=== PATIENT | female | born 1995 | race Caucasian/White ===

== ENCOUNTER 2018-11-26 09:58 | Emergency (ER) | payer BC ==
[2018-11-26] MEDS ORDERED: 0.9 % SODIUM CHLORIDE 1,000 ML BAG IV ONE (10:32)
[2018-11-26 10:47] LABS: URINE APPEARANCE CLEAR; URINE BILIRUBIN NEGATIVE (NEGATIVE); URINE BLOOD TRACE-I (NEGATIVE); URINE COLOR YELLOW; URINE GLUCOSE (UA) NEGATIVE (NEGATIVE); URINE KETONE NEGATIVE (NEGATIVE); URINE LEUKOCYTE ESTERASE NEGATIVE (NEGATIVE); URINE NITRITE NEGATIVE (NEGATIVE); URINE PROTEIN TRACE (NEGATIVE)
[2018-11-26 10:48] LABS: BASO % 0.4 % (0-6); EOS % 0.8 % (0-6); GRAN % 72.1 % (47-80); HEMATOCRIT 40.6 % (35.0-47.0); HEMOGLOBIN 13.7 gm/dl (11.6-16.0); MEAN CELL VOLUME 93.1 fl (81-97); MEAN CORPUSCULAR HEMOGLOBIN 31.4 pg (27-33); MEAN CORPUSCULAR HGB CONC 33.7 g/dl (32-36); MEAN PLATELET VOLUME 11.3 fl (7.4-10.4); MONO % 12.7 % (0-9); PLATELET COUNT 172 K/uL (130-400); RED BLOOD COUNT 4.36 M/uL (3.80-5.40); RED CELL DISTRIBUTION WIDTH 13.7 % (11.5-14.5); WHITE BLOOD COUNT W/O DIFF 4.7 K/uL (4.2-12.2)
[2018-11-26 10:54] LABS: URINE MUCUS MODERATE; URINE RBC 0 - 2 (NONE SEEN); URINE WBC NONE SEEN (0-2/hpf)
[2018-11-26 11:00] LABS: BLOOD UREA NITROGEN 7 mg/dL (6-20); CREATININE 0.5 mg/dL (0.5-0.9); EST GLOMERULAR FILTRATION RATE > 60 mL/min
[2018-11-26 11:03] LABS: GLUCOSE,RANDOM 104 mg/dL (74-109)
[2018-11-26 11:04] LABS: TOTAL PROTEIN 6.8 g/dL (6.6-8.7)
[2018-11-26 11:08] LABS: ALBUMIN 4.2 g/dL (4.0-5.0); ALT/SGPT 18 U/L (<33); AST/SGOT 19 U/L (10.0-35.0)
[2018-11-26 11:09] LABS: ALKALINE PHOSPHATASE 55 U/L (35-104)
[2018-11-26 11:11] LABS: BILIRUBIN,DIRECT < 0.2 mg/dL (0-0.3)
--- NOTE | 2018-11-26 11:19 | Emergency Department Record ---
History of Present Illness - General Chief complaint: Nausea, Vomiting, Diarrhea Stated complaint: VOMITING,DIARRHEA (12 WEEKS PREG) Time Seen by Provider: 11/26/18 10:37 Source: Patient Mode of Arrival: Ambulatory Limitations: No limitations - History of Present Illness Initial comments: pt started vomiting at 1am yesterday and then started having diarrhea. vomiting has stopped but diarrhea continues. pt is 12 wks preg and her ob told her to go to ed to be checked for food poisoning. she had eaten at a restaurant and had had salad w salami in it complaint: Nausea, Vomiting Onset/Timin -: Days(s) Description of Vomiting: Watery Severity: Moderate Severity scale (1-10): 1 Quality: Aching, Constant Consistency: Constant Context: Possible food poisoning Associated Symptoms: Nausea/vomiting - Related Data Home Medications Medication Instructions Recorded Confirmed Last Taken Montelukast Sodium [Singulair] 10 mg PO QHS 11/26/18 11/26/18 1 Day Ago ~11/25/18 Pnv No.95/Ferrous Fum/Folic AC 1 each PO DAILY 11/26/18 11/26/18 1 Day Ago [ Caplet] ~11/25/18 Allergies Allergy/AdvReac Type Severity Reaction Status Date / Time No Known Drug Allergies Allergy Verified 11/26/18 10:08 Travel Screening - Travel/Exposure Within Last 30 Days Have you traveled within the last 30 days?: No - Travel/Exposure Within Last Year Have you traveled outside the [place] in the last year?: No - Additonal Travel Details Have you been exposed to anyone with a communicable illness?: No - Travel Symptoms Symptom Screening: None Review of Systems Reviewed: No additional complaints except as noted below Constitutional: Reports: As per HPI. Denies: Chills, Fever, Malaise, Night sweats, Weakness, Weight change Eyes: Reports: As per HPI. Denies: Eye discharge, Eye pain, Photophobia, Vision change ENT: Reports: As per HPI. Denies: Congestion, Dental pain, Ear pain, Epistaxis , Hearing loss, Throat pain Respiratory: Reports: As per HPI. Denies: Cough, Dyspnea, Hemoptysis, Stridor, Wheezes Cardiovascular: Reports: As per HPI. Denies: Arrhythmia, Chest pain, Dyspnea on exertion, Edema, Murmurs, Orthopnea, Palpitations, Paroxysmal nocturnal dyspnea, Rheumatic Fever, Syncope Endocrine: Reports: As per HPI. Denies: Fatigue, Heat or cold intolerance, Polydipsia, Polyuria Gastrointestinal: Reports: As per HPI. Denies: Abdominal pain, Constipation, Diarrhea, Hematemesis, Hematochezia, Melena, Nausea, Vomiting Genitourinary: Reports: As per HPI. Denies: Abnormal menses, Discharge, Dyspareunia, Dysuria, Frequency, Hematuria, Incontinence, Retention, Urgency Musculoskeletal: Reports: As per HPI. Denies: Arthralgia, Back pain, Gout, Joint swelling, Myalgia, Neck pain Skin: Reports: As per HPI. Denies: Bruising, Change in color, Change in hair/ nails, Lesions, Pruritus, Rash Neurological: Reports: As per HPI. Denies: Abnormal gait, Confusion, Headache, Numbness, Paresthesias, Seizure, Tingling, Tremors, Vertigo, Weakness Psychiatric: Reports: As per HPI. Denies: Anxiety, Auditory hallucinations, Depression, Homicidal thoughts, Suicidal thoughts, Visual hallucinations Hematological/Lymphatic: Reports: As per HPI. Denies: Anemia, Blood Clots, Easy bleeding, Easy bruising, Swollen glands Past Medical History - SOCIAL HISTORY Smoking Status: Never smoker Alcohol Use: None Drug Use: None - RESPIRATORY Hx Respiratory Disorders: Yes Hx Asthma: Yes - CARDIOVASCULAR Hx Cardio Disorders: No - NEURO Hx Neuro Disorders: No - GI Hx GI Disorders: No - Hx Genitourinary Disorders: No - ENDOCRINE Hx Endocrine Disorders: No - MUSCULOSKELETAL Hx Musculoskeletal Disorders: No - PSYCH Hx Psych Problems: No - HEMATOLOGY/ONCOLOGY Hx Hematology/Oncology Disorders: No Family Medical History Any Significant Family History?: Yes Physical Exam - General General Appearance: Alert, Oriented x3, Cooperative, Mild distress - Head Head exam: Normal inspection - Eye Eye exam: Normal appearance, PERRL, EOMI Pupils: Normal accommodation - ENT ENT exam: Normal exam, Mucous membranes moist, Normal external ear exam, Normal orophraynx Ear exam: Normal external inspection. negative: External canal tenderness Nasal Exam: Normal inspection. negative: Discharge, Sinus tenderness Mouth exam: Normal external inspection, Tongue normal Teeth exam: Normal inspection. negative: Dental caries Throat exam: Normal inspection. negative: Tonsillar erythema, Tonsillar exudate - Neck Neck exam: Normal inspection, Full ROM. negative: Tenderness - Respiratory Respiratory exam: Normal lung sounds bilaterally. negative: Respiratory distress - Cardiovascular Cardiovascular Exam: Regular rate, Normal rhythm, Normal heart sounds - GI/Abdominal GI/Abdominal exam: Soft, Normal bowel sounds. negative: Tenderness - Rectal Rectal exam: Deferred - exam: Deferred - Extremities Extremities exam: Normal inspection, Full ROM, Normal capillary refill. negative: Tenderness - Back Back exam: Reports: Normal inspection, Full ROM. Denies: Muscle spasm, Rash noted, Tenderness - Neurological Neurological exam: Alert, CN II-XII intact, Normal gait, Oriented X3 - Psychiatric Psychiatric exam: Normal affect, Normal mood - Skin Skin exam: Dry, Intact, Normal color, Warm Course Vital Signs 11/26/18 10:00 Temperature 98.8 F Pulse Rate 86 Respiratory 18 Rate Blood Pressure 120/79 Pulse Ox 98 - Reevaluation(s) Reevaluation #1: 11/26/18 12:12 pt had no vomiting and diarrhea while in dept. rx for labs for stool sent with pt. Medical Decision Making - Lab Data Result diagrams: 11/26/18 10:10 11/26/18 10:10 Lab Results 11/26/18 11/26/18 11/26/18 Range/Units 10:10 10:10 10:10 WBC 4.7 (4.2-12.2) K/uL Corrected WBC RBC 4.36 (3.80-5.40) M/uL Hgb 13.7 (11.6-16.0) gm/dl Hct 40.6 (35.0-47.0) % MCV 93.1 (81-97) fl MCH 31.4 (27-33) pg MCHC 33.7 (32-36) g/dl RDW 13.7 (11.5-14.5) % Plt Count 172 (130-400) K/uL MPV 11.3 H (7.4-10.4) fl Gran % 72.1 (47-80) % Lymphocytes % 14.0 L (16-45) % Monocytes % 12.7 H (0-9) % Eosinophils % 0.8 (0-6) % Basophils % 0.4 (0-6) % Sodium 135 L (136-145) mmol/L Potassium 3.2 L (3.4-4.5) mmol/L Chloride 100 (98-107) mmol/L Carbon Dioxide 20.0 L (22-29) mmol/L Anion Gap 15.0 (7-16) BUN 7 (6-20) mg/dL Creatinine 0.5 (0.5-0.9) mg/dL Estimated GFR > 60 mL/min Random Glucose 104 (74-109) mg/dL Calcium 8.7 (8.6-10.0) mg/dL Total Bilirubin (0.2-1.0) mg/dL Direct Bilirubin (0-0.3) mg/dL AST (10.0-35.0) U/L ALT (<33) U/L Alkaline Phosphatase (35-104) U/L Total Protein (6.6-8.7) g/dL Albumin (4.0-5.0) g/dL Urine Color Yellow Urine Appearance Clear Urine pH 6.5 (5.0-8.0) Ur Specific [place] 1.025 (1.002-1.030) Urine Protein Trace H (NEGATIVE) Urine Glucose (UA) Negative (NEGATIVE) Urine Clinitest Urine Ketones Negative (NEGATIVE) Urine Blood Trace-i (NEGATIVE) Urine Nitrite Negative (NEGATIVE) Urine Bilirubin Negative (NEGATIVE) Urine Ictotest Prot Sulfosalicylic Acd Urine Urobilinogen 1.0 (0.20 - 1.00) E.U./dL Ur Leukocyte Esterase Negative (NEGATIVE) Urine RBC 0 - 2 (NONE SEEN) Urine WBC None seen (0-2/hpf) Ur Epithelial Cells 10 - 15 (FEW) Urine Mucus Moderate 11/26/18 11/26/18 11/26/18 Range/Units 10:10 10:53 10:53 WBC Cancelled (4.2-12.2) K/uL Corrected WBC Cancelled RBC Cancelled (3.80-5.40) M/uL Hgb Cancelled (11.6-16.0) gm/dl Hct Cancelled (35.0-47.0) % MCV Cancelled (81-97) fl MCH Cancelled (27-33) pg MCHC Cancelled (32-36) g/dl RDW Cancelled (11.5-14.5) % Plt Count Cancelled (130-400) K/uL MPV Cancelled (7.4-10.4) fl Gran % Cancelled (47-80) % Lymphocytes % Cancelled (16-45) % Monocytes % Cancelled (0-9) % Eosinophils % Cancelled (0-6) % Basophils % Cancelled (0-6) % Sodium (136-145) mmol/L Potassium (3.4-4.5) mmol/L Chloride (98-107) mmol/L Carbon Dioxide (22-29) mmol/L Anion Gap (7-16) BUN (6-20) mg/dL Creatinine (0.5-0.9) mg/dL Estimated GFR mL/min Random Glucose (74-109) mg/dL Calcium (8.6-10.0) mg/dL Total Bilirubin 0.30 (0.2-1.0) mg/dL Direct Bilirubin < 0.2 (0-0.3) mg/dL AST 19 (10.0-35.0) U/L ALT 18 (<33) U/L Alkaline Phosphatase 55 (35-104) U/L Total Protein 6.8 (6.6-8.7) g/dL Albumin 4.2 (4.0-5.0) g/dL Urine Color Cancelled Urine Appearance Cancelled Urine pH Cancelled (5.0-8.0) Ur Specific [place] Cancelled (1.002-1.030) Urine Protein Cancelled (NEGATIVE) Urine Glucose (UA) Cancelled (NEGATIVE) Urine Clinitest Cancelled Urine Ketones Cancelled (NEGATIVE) Urine Blood Cancelled (NEGATIVE) Urine Nitrite Cancelled (NEGATIVE) Urine Bilirubin Cancelled (NEGATIVE) Urine Ictotest Cancelled Prot Sulfosalicylic Acd Cancelled Urine Urobilinogen Cancelled (0.20 - 1.00) E.U./dL Ur Leukocyte Esterase Cancelled (NEGATIVE) Urine RBC (NONE SEEN) Urine WBC (0-2/hpf) Ur Epithelial Cells (FEW) Urine Mucus Disposition Disposition: Discharge Clinical Impression: Hypokalemia Nausea & vomiting Qualifiers: Vomiting type: unspecified Vomiting Intractability: non-intractable Qualified Code(s): R11.2 - Nausea with vomiting, unspecified Diarrhea Qualifiers: Diarrhea type: unspecified type Qualified Code(s): R19.7 - Diarrhea, unspecified Disposition: Home, Self-Care Condition: (1) Good Instructions: Acute Nausea and Vomiting (ED), Acute Diarrhea (ED) Additional Instructions: follow up with ob doctor. bring stool in to lab if obtained. push fluids. rest Forms: Patient Portal Access Quality - Quality Measures Quality Measures: N/A - Blood Pressure Screening Does Patient Have Any of the Following: No Blood Pressure Classification: Pre-Hypertensive BP Reading Systolic Measurement: 120 Diastolic Measurement: 79 Screening for High Blood Pressure: < Pre-Hypertensive BP, F/U Documented > [ [id number]] Pre-Hypertensive Follow-up Interventions: Follow-up with rescreen every year.
[2018-11-26] MEDS ORDERED: POTASSIUM CHLORIDE 20 MEQ/15ML CUP PO ONE (11:57)
== END 2018-11-26 12:27 | disposition home or self-care (01) ==
LOC: ER 09:58
DX: O99.280 Endocrine, nutritional and metabolic diseases complicating pregnancy, unspecified trimester (principal); E87.6 Hypokalemia; R11.2 Nausea with vomiting, unspecified; R19.7 Diarrhea, unspecified; Z3A.12 12 weeks gestation of pregnancy
CPT/HCPCS: 80048; 80076; 81001; 85025; 96360; 96361; 99284; J7030